=== PATIENT | male | born 1960 | race Caucasian/White ===

== ENCOUNTER 2021-01-08 16:47 | Emergency (ER) | payer OTHER ==
[~2021-01-08] VITALS: Ht 177.8 cm; Wt 77.7 kg
--- NOTE | 2021-01-08 16:58 | NUR ---
PT BIB EMS FOR RIGHT FLANK PAIN AND HEMATURIA. PT WAS DIAGNOSED W 4.3 MM STONE IN RIGHT URETER. INCREASED PAIN TODAY. DENIES N/V EMS 10MG MORPHINE
--- NOTE | 2021-01-08 17:12 | NUR ---
PT TO IMAGING
--- NOTE | 2021-01-08 17:22 | NUR ---
PT IN ROOM. LAB AT BEDSIDE.
[2021-01-08 17:32] LABS: BASOPHILS % (AUTO) 1 % (0-1); EOSINOPHILS % (AUTO) 0 % (1-7); LYMPHOCYTES % (AUTO) 7 % (22-44); MEAN CORPUSCULAR HEMOGLOBIN 31.6 pg (27.5-34.5); MEAN CORPUSCULAR HGB CONC 32.8 g/dL (33.2-36.2); MEAN PLATELET VOLUME 9.9 fL (7.4-10.4); MONOCYTES % (AUTO) 5 % (2-9); NEUTROPHILS % (AUTO) 87 % (42-75); PLATELET COUNT 332 x10^3/uL (130-400); RED BLOOD COUNT 4.77 x10^6/uL (4.38-5.82); RED CELL DISTRIBUTION WIDTH 13.5 % (9.4-14.8)
[2021-01-08 17:41] LABS: ALANINE AMINOTRANSFERASE 25 U/L (12-78); ALBUMIN 3.9 g/dL (3.4-5.0); ANION GAP 3 mmol/L (5-15); CALCIUM 8.6 mg/dL (8.5-10.1); CHLORIDE 113 mmol/L (98-107); CREATININE 1.22 mg/dL (0.7-1.3)
[2021-01-08 17:42] LABS: MD NO
[2021-01-08 17:44] LABS: ALKALINE PHOSPHATASE 49 U/L (45-117); BILIRUBIN,TOTAL 0.5 mg/dL (0.2-1.0); TOTAL PROTEIN 7.1 g/dL (6.4-8.2)
--- NOTE | 2021-01-08 17:55 | NUR ---
US COMPLETE. [facility] SENT
[2021-01-08 18:01] LABS: MICROSCOPIC AUTO
[2021-01-08 18:42] VITALS: BP 135/88
--- NOTE | 2021-01-08 18:43 | NUR ---
PT RESTING, VSS.
--- NOTE | 2021-01-08 18:50 | NUR ---
MD HUNT AT BEDSIDE. REPORT TO LINA
--- NOTE | 2021-01-08 19:06 | NUR ---
REPORT FROM ISABELLE BONILLA. PT [facility]
== END 2021-01-08 19:48 | disposition home or self-care (01) ==
LOC: ED 19:00
DX: N13.30 Unspecified hydronephrosis (principal); K59.00 Constipation, unspecified; R94.31 Abnormal electrocardiogram [ECG] [EKG]; Z90.89 Acquired absence of other organs
CPT/HCPCS: 36415; 74018; 76770; 80053; 81001; 85025; 87086; 93005; 99285